=== PATIENT | female | born 1955 | race Caucasian/White ===

== ENCOUNTER 2017-12-29 10:32 | Outpatient (CLI) | payer BC | END 2017-12-29 10:33 | disposition home or self-care (01) | LOC: BICMAMMO 10:32 | PROVIDERS: ATTEND Family Medicine | DX: Z12.31 Encounter for screening mammogram for malignant neoplasm of breast (principal); R92.1 Mammographic calcification found on diagnostic imaging of breast | CPT/HCPCS: 77063; 77067 ==

== ENCOUNTER 2018-03-16 10:43 | Outpatient (CLI) | payer BC ==
--- NOTE | 2018-03-16 13:43 | CT ---
ABDOMEN CT WITH CONTRAST: PELVIS CT WITH CONTRAST: HISTORY: Anal cancer. Bowel changes. The patient has undergone chemotherapy and radiation therapy. COMPARISON: Study done at [facility] on 07/28/2016. FINDINGS: ABDOMEN: The lung bases are clear. Heart size is normal. No significant pericardial fluid. The de scending thoracic aorta and the abdominal aorta have a normal caliber. No periaortic fat stranding. The portal vein is patent. There is a 4 mm hypodensity in the posterior segment of the right lobe, n ot appreciated on the previous examination. The lesion is too small to further characterize. The sp alexis, pancreas, and adrenal glands have appropriate enhancement. No gastrohepatic, retrocrural, or periportal lymphadenopathy. Symmetric enhancement of the kidneys. No obstructive uropathy. The gastric mucosa, the duodenum, and multiple normal caliber small bowel loops are noted. The ileoc ecal junction is unremarkable. There is impacted fecal material in the cecum. Fecal material obscur es any underlying fecal masses. A colonoscopy should be performed, if has not been done. The ascend ing colon, transverse colon, and descending colon have a normal appearance. There is mucosal thicken ing involving the entire sigmoid colon, as well as the rectum and the anus. Mucosal prominence may b e due to post treatment change or sequelae of remote bouts of infection/inflammation. Reactive delaney es from treatment cannot be excluded. There is no mesenteric mass, lymphadenopathy, free air, or free fluid. PELVIS: The urinary bladder is unremarkable. There is no pelvic mass, lymphadenopathy, free air, or free fluid. There is no evidence of a perirectal lymph node. No lytic or blastic lesions in the osseous structures. IMPRESSION: Mucosal thickening involving the left hemicolon, the rectum, and the anus, as described above. Mucos al prominence is presumed to be due to post treatment change or sequelae of remote bouts of infection /inflammation. Underlying mass cannot be excluded. Direct visualization is recommended. If colonosc opy is performed, further evaluation of the cecum can be performed to exclude an underlying mass in t he cecum, which could be easily obscured by impacted fecal material. POS: [facility]
== END 2018-03-16 10:44 | disposition home or self-care (01) ==
LOC: BICCT 10:43
PROVIDERS: ATTEND Internal Medicine Hematology & Oncology
DX: C21.8 Malignant neoplasm of overlapping sites of rectum, anus and anal canal (principal); K63.89 Other specified diseases of intestine
CPT/HCPCS: 74177

== ENCOUNTER 2019-05-14 09:45 | Outpatient (CLI) | payer BC ==
--- NOTE | 2019-05-14 10:30 | MMO ---
Bilateral MAMMO Bilat Screen [facility]. CLINICAL HISTORY: Patient is 63 years old and is seen for screening. The patient has no family history of breast cancer. VIEWS: The views performed were: bilateral craniocaudal with tomosynthesis and bilateral mediolateral oblique with tomosynthesis. FILMS COMPARED: The present examination has been compared to a prior imaging study performed at [facility] on 12/29/2017. This study has been interpreted with the assistance of computer-aided detection. MAMMOGRAM FINDINGS: There are scattered fibroglandular densities. There are no suspicious masses, suspicious calcifications, or new areas of architectural distortion. IMPRESSION: THERE IS NO MAMMOGRAPHIC EVIDENCE OF MALIGNANCY. A ROUTINE FOLLOW-UP MAMMOGRAM IN 1 YEAR IS RECOMMENDED. THE RESULTS OF THIS EXAM WERE SENT TO THE PATIENT. ACR BI-RADS Category 1 - Negative MAMMOGRAPHY NOTE: 1. A negative mammogram report should not delay a biopsy if a dominant of clinically suspicious mass is present. 2. Approximately 10% to 15% of breast cancers are not detected by mammography. 3. Adenosis and dense breasts may obscure an underlying neoplasm. Reported by: HAYDER CASTANEDA MD Electonically Signed: [id number]
== END 2019-05-14 09:46 | disposition home or self-care (01) ==
LOC: BICMAMMO 09:45
PROVIDERS: ATTEND Internal Medicine Hematology & Oncology
DX: Z12.31 Encounter for screening mammogram for malignant neoplasm of breast (principal)
CPT/HCPCS: 77063; 77067

== ENCOUNTER 2020-07-31 10:43 | Outpatient (CLI) | payer BC ==
--- NOTE | 2020-07-31 11:48 | MMO ---
Bilateral MAMMO Bilat Screen [facility]. CLINICAL HISTORY: Patient is 64 years old and is seen for screening. The patient has no family history of breast cancer. The patient has no personal history of cancer. VIEWS: The views performed were: bilateral craniocaudal with tomosynthesis and bilateral mediolateral oblique with tomosynthesis. FILMS COMPARED: The present examination has been compared to prior imaging studies performed at [facility] on 12/29/2017 and 05/14/2019. This study has been interpreted with the assistance of computer-aided detection. MAMMOGRAM FINDINGS: There are scattered fibroglandular densities. There are stable benign appearing calcifications seen in both breasts. There are no suspicious masses, suspicious calcifications, or new areas of architectural distortion. IMPRESSION: THERE IS NO MAMMOGRAPHIC EVIDENCE OF MALIGNANCY. A ROUTINE FOLLOW-UP MAMMOGRAM IN 1 YEAR IS RECOMMENDED. THE RESULTS OF THIS EXAM WERE SENT TO THE PATIENT. ACR BI-RADS Category 2 - Benign finding MAMMOGRAPHY NOTE: 1. A negative mammogram report should not delay a biopsy if a dominant of clinically suspicious mass is present. 2. Approximately 10% to 15% of breast cancers are not detected by mammography. 3. Adenosis and dense breasts may obscure an underlying neoplasm. Reported by: ARASELI ALFORD MD Electonically Signed: [id number]
== END 2020-07-31 10:44 | disposition home or self-care (01) ==
LOC: BICMAMMO 10:43
PROVIDERS: ATTEND Internal Medicine Hematology & Oncology
DX: Z12.31 Encounter for screening mammogram for malignant neoplasm of breast (principal)
CPT/HCPCS: 77063; 77067

== ENCOUNTER 2021-09-25 11:28 | Outpatient (CLI) | payer MEDICARE | END 2021-09-25 11:29 | disposition home or self-care (01) | LOC: BICMAMMO 11:28 | PROVIDERS: ATTEND Internal Medicine Hematology & Oncology | DX: Z12.31 Encounter for screening mammogram for malignant neoplasm of breast (principal) | CPT/HCPCS: 77063; 77067 ==

== ENCOUNTER 2022-11-17 09:55 | Outpatient (CLI) | payer MEDICARE | END 2022-11-17 09:56 | disposition home or self-care (01) | LOC: BICMAMMO 09:55 | PROVIDERS: ATTEND Internal Medicine Hematology & Oncology | DX: Z12.31 Encounter for screening mammogram for malignant neoplasm of breast (principal) | CPT/HCPCS: 77063; 77067 ==

== ENCOUNTER 2023-11-24 10:19 | Outpatient (CLI) | payer MEDICARE | END 2023-11-24 10:20 | disposition home or self-care (01) | LOC: BICMAMMO 10:19 | PROVIDERS: ATTEND Internal Medicine Hematology & Oncology | DX: Z12.31 Encounter for screening mammogram for malignant neoplasm of breast (principal); Z85.89 Personal history of malignant neoplasm of other organs and systems | CPT/HCPCS: 77063; 77067 ==